=== PATIENT | female | born 1945 | race Caucasian/White ===

== ENCOUNTER → 2018-10-01 11:54 | Outpatient (CLI) | payer MEDICARE, OTHER ==
--- NOTE | 2018-10-01 14:00 | NUR ---
PROCEDURE TIME OUT PERFORMED @ 1330 BY Jesus TRACY RTDanitza
== END | disposition home or self-care (01) ==
LOC: D.RAD 11:54
PROVIDERS: ATTEND Orthopaedic Surgery
DX: M13.811 Other specified arthritis, right shoulder (principal)

== ENCOUNTER 2018-10-31 09:34 | Inpatient (IN) | payer MEDICARE, OTHER ==
[~2018-10-31] VITALS: Ht 162.6 cm; Wt 86.2 kg
[2018-11-14 11:58] LABS: BASOPHILS 0.2 % (0-2); EOSINOPHILS 1.3 % (0-7); HEMATOCRIT 37.8 % (36.0-48.0); HEMOGLOBIN 12.9 g/dL (12-16); IMMATURE GRANULOCYTES 0.2 % (0-5); LYMPHOCYTES 22.5 % (15-50); MCH 31.5 pg (26.0-34.0); MCHC 34.1 g/dL (31.0-37.0); MCV 92.2 fL (80.0-100.0); MEAN PLATELET VOLUME 9.8 fL (7.4-10.4); MONOCYTES 5.8 % (2-11); PLATELET COUNT 206 10x3/uL (130-400); WBC 6.2 10x3/uL (4.8-10.8)
[2018-11-14] MEDS ORDERED: COZAAR50 MG (12:10)
[2018-11-14] MEDS ORDERED: FUROSEMIDE20 MG PO (12:10)
[2018-11-14] MEDS ORDERED: COREG6.25 MG PO ×2 (12:11→12:12)
[2018-11-14] MEDS ORDERED: ZOLOFT50 MG PO (12:11)
[2018-11-14] MEDS ORDERED: ALDACTONE25 MG PO (12:11)
[2018-11-14] MEDS ORDERED: OMEPRAZOLE40 MG PO (12:12)
[2018-11-14] MEDS ORDERED: PRAVACHOL20 MG PO (12:12)
[2018-11-14] MEDS ORDERED: LUTEIN20 MG PO (12:13)
[2018-11-14 12:14] LABS: APTT 29.2 SECONDS (22.8-39.4); INR 1.01 (0.85-1.17); PROTIME 12.8 SECONDS (11.6-15.0)
[2018-11-14] MEDS ORDERED: COZAAR50 MG PO (12:15)
[2018-11-14] MEDS ORDERED: CENTRUM SILVER1 EAC3 PO (12:16)
[2018-11-14 12:17] LABS: ANION GAP 9.1 mmol/L (8-16); POTASSIUM - SERUM 4.1 mmol/L (3.5-5.1)
[2018-11-14] MEDS ORDERED: CALCIUM 600 +1 EAC3 PO (12:17)
[2018-11-14 12:21] LABS: APPEARANCE CLEAR (CLEAR); BILIRUBIN NEGATIVE (NEGATIVE); COLOR YELLOW (YELLOW); GLUCOSE NEGATIVE (NEGATIVE); KETONE NEGATIVE (NEGATIVE); NITRITE NEGATIVE (NEGATIVE); PROTEIN NEGATIVE (NEGATIVE); UROBILINOGEN NORMAL (NORMAL)
[2018-11-14 12:22] LABS: BACTERIA FEW /hpf (NONE SEEN); EPITHELIAL CELLS 0-5 /hpf (0-5); RED CELLS - URINE 0-5 /hpf (0-5); WHITE CELLS - URINE RARE /hpf (0-5)
[2018-11-14 12:23] LABS: HYALINE CAST RARE /lpf (NONE SEEN); MUCUS <1+ /lpf (NONE SEEN)
[2018-11-20] MEDS ORDERED: SULFAMETHOXAZOL1 TA3 PO (05:58)
[2018-11-20 06:09] VITALS: BP 117/70; BMI 32.1
--- NOTE | 2018-11-20 11:05 | NUR ---
ANESTHESIA CONSULTED FOR CONTINUED HYPOTENSION. PATIENT ASYMTOMATIC. DENIES NAUSEA OR DIZZINESS. NO NEW ORDERS GIVEN AT THIS TIME.
--- NOTE | 2018-11-20 11:13 | NUR ---
DR LAKE PAGED TO BEDSIDE FOR FURTHER EVALUATION OF SYSTOLIC PRESSURE.
--- NOTE | 2018-11-20 11:51 | NUR ---
DR LAKE PAGED FOR NEW ORDERS FOR CONTINUED HYPOTENSION.
[2018-11-20 12:51] VITALS: BP 99/60
[2018-11-20 14:15] VITALS: BP 99/60; BMI 32.7
[2018-11-20 20:00] VITALS: BP 118/66
--- NOTE | 2018-11-20 20:00 | NUR ---
ALERT AND ORIENTED. ADMINSTERED PAIN MEDICINE. PATIENT TOLERATED WELL. STATES PAIN IS TOLERABLE AT THIS TIME. SISTER THAT IS AN RN IS IN ROOM. RIGHT SHOULDER IN SLING. LEFT WRIST IV INFUSING NS @ 5O. PATIENT HAS PACEMAKER AND DEFIBRILLATOR. DENIES FURTHER NEEDS AT THIS TIME. HAS CALL LIGHT IN REACH.
[2018-11-21 01:08] VITALS: BP 124/64
--- NOTE | 2018-11-21 03:00 | NUR ---
I have reviewed this patient and I concur with the Shift Assessment completed by the Licensed Practical Nurse today this shift.
[2018-11-21 05:21] VITALS: BP 124/60
[2018-11-21 06:50] LABS: BASOPHILS 0 % (0-2); EOSINOPHILS 0 % (0-7); HEMATOCRIT 25.9 % (36.0-48.0); HEMOGLOBIN 8.7 g/dL (12-16); IMMATURE GRANULOCYTES 0.3 % (0-5); LYMPHOCYTES 12.6 % (15-50); MCH 30.6 pg (26.0-34.0); MCHC 33.6 g/dL (31.0-37.0); MCV 91.2 fL (80.0-100.0); MEAN PLATELET VOLUME 9.4 fL (7.4-10.4); MONOCYTES 9.8 % (2-11); NEUTROPHILS 77.3 % (40-80); PLATELET COUNT 173 10x3/uL (130-400); RBC 2.84 10x6/uL (4.00-5.40); RDW 13.2 % (11.5-14.5); WBC 10.2 10x3/uL (4.8-10.8)
[2018-11-21 07:08] LABS: ANION GAP 11.6 mmol/L (8-16); CARBON DIOXIDE 25.8 mmol/L (21.0-32.0); CREATININE - SERUM 1.1 mg/dL (0.6-1.3); POTASSIUM - SERUM 4.4 mmol/L (3.5-5.1)
--- NOTE | 2018-11-21 07:30 | NUR ---
LYING IN BED,WITHOUT DISTRESS.PT WANTS PAIN MEDS WHEN TIME.
--- NOTE | 2018-11-21 09:54 | NUR ---
DECLINES DEMEROL IM AT THIS TIME
[2018-11-21 10:30] VITALS: BP 120/68
--- NOTE | 2018-11-21 11:00 | NUR ---
ASSESSMENT PER FLOW SHEET. PT IS WITHOUT DISTRESS. PAIN BETTER.MONITOR FOR NEEDS.
--- NOTE | 2018-11-21 11:00 | NUR ---
ASSESSMENT PER FLOW SHEET. PT IS WITHOUT DISTRESS.CALL LIGHT IN REACH
[2018-11-21 12:00] VITALS: BP 138/65
[2018-11-21 13:53] VITALS: Ht 162.6 cm; Wt 86.2 kg
[2018-11-21 17:23] VITALS: BP 127/57
--- NOTE | 2018-11-21 19:30 | NUR ---
PT ALERT AND ORIENTED. RIGHT SHOULDER REMAINS IN SLING. PT HAS ARM PROPPED ON TWO PILLOWS. STATES PAIN IS TOLERABLE AT THIS TIME. LEFT WRIST IV IS SALINE LOCKED. ROOM AIR. PT USES CALL LIGHT WHEN IN NEED. REFUSES SCDS AT THIS TIME.
[2018-11-21 20:23] VITALS: BP 123/69
--- NOTE | 2018-11-22 03:44 | NUR ---
I have reviewed this patient and I concur with the Shift Assessment completed by the Licensed Practical Nurse today this shift.
[2018-11-22 05:12] VITALS: BP 120/68
[2018-11-22 07:15] LABS: BASOPHILS 0 % (0-2); EOSINOPHILS 0.5 % (0-7); HEMATOCRIT 23.8 % (36.0-48.0); IMMATURE GRANULOCYTES 0.1 % (0-5); LYMPHOCYTES 10.5 % (15-50); MCH 30.8 pg (26.0-34.0); MCHC 33.6 g/dL (31.0-37.0); MCV 91.5 fL (80.0-100.0); MEAN PLATELET VOLUME 9.4 fL (7.4-10.4); MONOCYTES 10.1 % (2-11); NEUTROPHILS 78.8 % (40-80); PLATELET COUNT 144 10x3/uL (130-400); RDW 13.1 % (11.5-14.5); WBC 9.3 10x3/uL (4.8-10.8)
--- NOTE | 2018-11-22 08:15 | NUR ---
PT RESTING IN BED WITH EYES OPEN CALL LIGHT IN REACH WILL MONITER
[2018-11-22 09:41] VITALS: BP 129/75
[2018-11-22 12:59] VITALS: BP 151/75
--- NOTE | 2018-11-22 15:43 | NUR ---
I have reviewed this patient and I concur with the Shift Assessment completed by the Licensed Practical Nurse today this shift.
[2018-11-22 16:28] VITALS: BP 128/77
--- NOTE | 2018-11-22 16:48 | NUR ---
PT RESTING IN BED EYES OPEN CALL LIGHT IN REACH WILL MONITER
[2018-11-22 20:00] VITALS: BP 143/69
[2018-11-23] VITALS: BP 138/61
--- NOTE | 2018-11-23 03:00 | NUR ---
I have reviewed this patient and I concur with the Shift Assessment completed by the Licensed Practical Nurse today this shift.
[2018-11-23 04:00] VITALS: BP 131/65
[2018-11-23 06:16] LABS: BASOPHILS 0.1 % (0-2); EOSINOPHILS 0.7 % (0-7); HEMATOCRIT 22.8 % (36.0-48.0); HEMOGLOBIN 7.8 g/dL (12-16); IMMATURE GRANULOCYTES 0.2 % (0-5); LYMPHOCYTES 15.6 % (15-50); MCH 31.1 pg (26.0-34.0); MCHC 34.2 g/dL (31.0-37.0); MCV 90.8 fL (80.0-100.0); MEAN PLATELET VOLUME 8.6 fL (7.4-10.4); MONOCYTES 8.9 % (2-11); NEUTROPHILS 74.5 % (40-80); PLATELET COUNT 130 10x3/uL (130-400); RBC 2.51 10x6/uL (4.00-5.40); WBC 8.7 10x3/uL (4.8-10.8)
--- NOTE | 2018-11-23 08:14 | NUR ---
PT ALERT X 4. BREATH SOUNDS CLEAR BILAT. SLING TO RIGHT ARM, DRESSING TO RIGHT SHOULDER CDI. IV TO LEFT WRIST, PATENT, DRESSING CDI. PT REPORTING PAIN OF 4/10, WILL MONITOR. BED LOW, CALL LIGHT IN REACH. NO OTHER NEEDS AT THIS TIME.
[2018-11-23] MEDS ORDERED: FERROUS SULFAT325 MG PO (08:46)
[2018-11-23] MEDS ORDERED: VISTARIL50 MG PO (08:47)
[2018-11-23] MEDS ORDERED: NORCO-7.5 PO (08:47)
[2018-11-23 09:19] VITALS: BP 156/71
--- NOTE | 2018-11-23 11:03 | NUR ---
FIRST UNIT OF BLOOD STARTED ON PT. VSS. WILL MONITOR.
[2018-11-23 17:28] VITALS: BP 154/75
--- NOTE | 2018-11-23 20:00 | NUR ---
LAST UNIT OF BLOOD FINISHED, PT DRESSED SITTING ON SIDE OF BED READY TO GO HOME, IV DC'D, DISCHARGE INSTRUCTIONS AND PERSCRIPTIONS GIVEN. DISCHARGED VIA WC WITH FAMILY
== END 2018-11-23 20:11 | disposition home or self-care (01) | DRG 483 ==
LOC: D.SDCHOLD 11-19 11:00 → D.MS 11-20 05:00 → D.SDCHOLD 11-20 05:00 → D.MS 11-20 12:49 → D.SDCHOLD 11-20 15:15 → D.MS 11-23 20:11
PROVIDERS: ADMIT Orthopaedic Surgery; ATTEND Orthopaedic Surgery
PROC: 0RRJ00Z Replacement of Right Shoulder Joint with Reverse Ball and Socket Synthetic Substitute, Open Approach (ICD-10-PCS; principal; 2018-11-20 07:30)
DX: M12.811 Other specific arthropathies, not elsewhere classified, right shoulder (principal); D64.9 Anemia, unspecified

== ENCOUNTER → 2018-11-04 17:45 | Outpatient (CLI) | payer MEDICARE, OTHER | END | disposition home or self-care (01) | LOC: D.LABREF 17:45 | PROVIDERS: ATTEND Orthopaedic Surgery | DX: M19.011 Primary osteoarthritis, right shoulder (principal); Z11.8 Encounter for screening for other infectious and parasitic diseases ==

== ENCOUNTER → 2020-11-15 09:30 | Outpatient (CLI) | payer MEDICARE, OTHER ==
[2018-11-21 13:53] VITALS: BMI 32.6
[~2020-11-15 09:30] MED LIST: ALDACTONE25 MG PO; CALCIUM 600 +1 EAC3 PO; CENTRUM SILVER1 EAC3 PO; COREG6.25 MG PO; COZAAR50 MG; COZAAR50 MG PO; FERROUS SULFAT325 MG PO; FUROSEMIDE20 MG PO; LUTEIN20 MG PO; NORCO-7.5 PO; OMEPRAZOLE40 MG PO; PRAVACHOL20 MG PO; SULFAMETHOXAZOL1 TA3 PO; VISTARIL50 MG PO; ZOLOFT50 MG PO
[2020-11-15 10:14] LABS: BASOPHILS 0.2 % (0-2); EOSINOPHILS 1.7 % (0-7); HEMATOCRIT 41.4 % (36.0-48.0); HEMOGLOBIN 13.9 g/dL (12-16); LYMPHOCYTES 21.8 % (15-50); MCH 31.5 pg (26.0-34.0); MCHC 33.6 g/dL (31.0-37.0); MCV 93.6 fL (80.0-100.0); MEAN PLATELET VOLUME 7.2 fL (7.4-10.4); MONOCYTES 8.7 % (2-11); NEUTROPHILS 67.6 % (40-80); PLATELET COUNT 221 10x3/uL (130-400); RBC 4.42 10x6/uL (4.00-5.40); RDW 13.8 % (11.5-14.5); WBC 4.8 10x3/uL (4.8-10.8)
== END | disposition home or self-care (01) ==
LOC: D.LAB 08:15 → D.CT 10:00 → D.RAD 11:00
PROVIDERS: ATTEND Internal Medicine Pulmonary Disease
DX: J98.4 Other disorders of lung (principal); J45.909 Unspecified asthma, uncomplicated